=== PATIENT | female | born 1950 | race Caucasian/White ===

== ENCOUNTER 2016-06-17 17:49 | Emergency (ER) | payer OTHER ==
--- NOTE | ~2016-06-17 | CR63 ---
[facility]. [facility] A Service of [facility] RADIOLOGY TEXT RESULTS PATIENT: LIZA CANALES LOCATION: SED : 48 UNIT #: [id number] AGE: [address]: Sukh uL MD SEX: F ORDER DR: [id number] [address] [address] [id number] MR#: [id number] Acc #: [id number] NAME: LIZA CANALES : 1950 SEX: F STUDY DATE/TIME: 06/17/2016 17:40 UNIT: SED ROOM: STUDY DESCRIPTION: CR Chest 2 View Attending Physician: Sukh Lu M.D. Ordering Physician: Sukh Lu M.D. Primary Care Physician: No Primary Care Physician MEDICAL IMAGING REPORT This report is preliminary unless electronic signature is present. EXAM Chest, PA and lateral. DATE OF EXAM 06/17/2016 HISTORY Dyspnea, cough and chest congestion for 1 week with headache and body aches and fever. FINDINGS The heart is normal in size. There are patchy infiltrates in the lower lobes bilaterally characteristic of bibasilar pneumonia. The upper lungs are clear. There are no pleural effusions. IMPRESSION Bibasilar infiltrates characteristic of pneumonia. Dictated by... David Kennedy M.D. THIS IS AN ELECTRONICALLY VERIFIED REPORT David Kennedy M.D. at 06/18/2016 8:23 AM ESTHELA/maryellen TD: 06/17/2016 23:21 JOB #: [id number] MEDICAL IMAGING REPORT Page 1 of 1
--- NOTE | ~2016-06-17 | EKG ---
PATIENT: LIZA CANLAES UNIT #: [id number] Ventricular Rate: 105 BPM Atrial Rate: 105 BPM P-R Interval: 126 ms QRS Duration: 60 ms Q-T Interval: 308 ms QTC Calculation(Bezet): 407 ms P [place]: 54 degrees Calculated R [place]: 46 degrees Calculated T [place]: 25 degrees Diagnosis Line: Sinus tachycardia Diagnosis Line: Otherwise normal ECG Diagnosis Line: Diagnosis Line: Confirmed by DAYO HILL MD ([id number]) on 06/18/2016 Diagnosis Line: 9:13:48 PM INTERPRETING MD: SERGIO MORALES
[~2016-06-17 17:49] MED LIST: CIPRO PO; FLOMAX0.4 M1 PO; HYDROCODON-ACE1 EAC7 PO
[2016-06-17 18:02] LABS: BASOPHIL# 0.1 X10e3 (0-0.3); BASOPHIL% 0.6 % (0-2.5); EOSINOPHIL# 0.3 X10e3 (0-0.7); EOSINOPHIL% 2.2 % (0.0-7.0); HEMATOCRIT 36.3 % (35.0-45.0); HEMOGLOBIN 11.7 gm/dL (12.0-16.0); LYMPHOCYTE# 1.3 X10e3 (1.0-3.5); LYMPHOCYTE% 10.1 % (17.0-45.0); MEAN CELL VOLUME 85.7 FL (83-96); MEAN CORPUSCULAR HEMOGLOBIN 27.6 PG (28-34); MEAN CORPUSCULAR HGB CONC 32.2 g/dL (30-36); MEAN PLATELET VOLUME 7.6 FL (6.5-11.5); MONOCYTE# 1.1 X10e3 (0-1.0); MONOCYTE% 8.2 % (3.0-12.0); NEUTROPHIL# 10.5 X10e3 (1.5-7.1); NEUTROPHIL% 78.9 % (40-75); PLATELET COUNT 261 X10e3 (140-420); RED BLOOD COUNT 4.23 X10e (3.90-5.30); RED CELL DISTRIBUTION WIDTH 13.7 % (11.0-15.5); WHITE BLOOD COUNT 13.3 X10e3 (4.0-10.5)
[2016-06-17 18:03] LABS: DIFF IND NO
[2016-06-17 18:25] LABS: ALBUMIN SERUM 3.4 g/dL (3.5-5.0); BILIRUBIN, DIRECT 0.1 mg/dL (0.0-0.2); BILIRUBIN,INDIRECT 0.5 mg/dL (0.0-0.9); BILIRUBIN,TOTAL 0.6 mg/dL (0.2-2.0); BUN/CREATININE RATIO 14.28; CALCIUM SERUM 8.8 mg/dL (8.4-10.2); CREATININE SERUM 0.7 mg/dL (0.6-1.4); GLOM FILT RATE Estimated 89.7 mL/min (>60); POTASSIUM 3.7 mmol/L (3.5-5.1); PROTEIN TOTAL SERUM 7.5 g/dL (6.0-8.3)
== END 2016-06-17 21:27 ==
LOC: SED 17:49
PROVIDERS: Emergency Medicine
DX: J18.9 Pneumonia, unspecified organism (principal); J45.909 Unspecified asthma, uncomplicated; Z88.0 Allergy status to penicillin
CPT/HCPCS: 36415; 71020; 80048; 80076; 83605; 83880; 85025; 87040; 93005; 94640; 96361; 96374; 99284; 99285; J1956; J2930